=== PATIENT | male | born 1965 | race Caucasian/White ===

== ENCOUNTER 2020-04-07 04:49 | Day surgery (SDC) | payer BC ==
[2020-04-05 10:29] VITALS: BMI 25.0
--- NOTE | 2020-04-07 08:04 | HP ---
[facility]ellite [facility] - Chief Complaint Chief Complaint: left elbow pain, numbness - Past Medical History Allergies/Adverse Reactions: Allergies Allergy/AdvReac Type Severity Reaction Status Date / Time No Known Drug Allergies Allergy Verified 04/05/20 10:21 - Current Medications Current Medications: Home Medications Medication Instructions Recorded Ibuprofen 600 mg PO BID 04/05/20 Hydrocodone/Acetaminophen 1 each PO Q6H #30 tablet MDD 4 04/07/20 [Hydrocodone-Acetamin 5-325 mg] Satellite Physical Exam - Physical Examination Vital Signs: Vital Signs Period Temp Pulse Resp BP Sys/Joshi Pulse Ox Last 24 Hr 97.3 F 76 20 129/83 97 General Appearance: Well Nourished, Well Developed, Alert & Oriented x3 ENT: Clear Lung: Normal air movement Extremities: Other (left elbow- + tinels, + ttp, decr sensation in ulna nerve distribution, emg + cubital tunnel syndrome, MRI medial epicondylitis) Neurological: Intact, Alert, Oriented Satellite Impression/Plan - Impression/Plan Impression: left elbow cubital tunnel syndrome, medial epicondylitis Operative Procedure: left elbow ulna nerve transposition, medial epicondylectomy Date to be Performed: 04/07/20
[2020-04-07] MEDS ORDERED: ROPIVACAINE HCL 0.5% 30ML VIAL ONE (08:35)
[2020-04-07] MEDS ORDERED: DEXAMETHASONE SOD PHOSPHATE/PF 10 MG/ML SDV ONE (08:35)
[2020-04-07] MEDS ORDERED: MIDAZOLAM HCL 2 MG/2 ML SINGLE DOSE VIAL ONE ×2 (08:39)
[2020-04-07] MEDS ORDERED: PROPOFOL 20 ML ONE ×2 (09:55)
[2020-04-07] MEDS ORDERED: ceFAZolin SODIUM 1 GM VIAL IVPB ONE (10:01)
[2020-04-07] MEDS ORDERED: ceFAZolin SODIUM 1 GM VIAL ONE (10:45)
[2020-04-07] MEDS ORDERED: DEXAMETHASONE SOD PHOSPHATE 4 MG/1 ML VIAL ONE (10:45)
[2020-04-07] MEDS ORDERED: LIDOCAINE HCL/PF 2% SDV 5ML VIAL ONE (10:45)
[2020-04-07] MEDS ORDERED: KETOROLAC TROMETHAMINE 30 MG/1 ML VIAL ONE (10:45)
--- NOTE | 2020-04-07 11:33 | OP ---
Operative Note - Note: Operative Date: 04/07/20 ([facility]) Pre-Operative Diagnosis: left elbow cubital tunnel syndrome, medial epicondylitis Operation: left elbow ulna nerve transposition, medial epicondylectomy Post-Operative Diagnosis: Same as Pre-op Surgeon: Jaspreet Crews Branch Operations Coordinator: Denilson Peña Anesthesiologist/DRAGLINE OPERATOR: Erick Young Anesthesia: General, Local Estimated Blood Loss (mls): 0 (tourniquet)
[2020-04-07] MEDS ORDERED: oxyCODONE HCL 5 MG TABLET PO PRN (11:39)
[2020-04-07] MEDS ORDERED: ONDANSETRON 4 MG/2 ML VIAL IVPUSH PRN (11:39)
[2020-04-07] MEDS ORDERED: PROMETHAZINE HCL 25 MG/1 ML VIAL IVPB PRN (11:39)
[2020-04-07] MEDS ORDERED: LACTATED RINGERS SOLUTION 1,000 ML IV SCH (11:45)
[2020-04-07] MEDS ORDERED: oxyCODONE HCL 5 MG TABLET ONE (12:56)
--- NOTE | 2020-04-07 13:33 | OP ---
DATE OF OPERATION: 04/07/2020 PREOPERATIVE DIAGNOSES: Left elbow cubital tunnel syndrome and medial epicondylitis. POSTOPERATIVE DIAGNOSES: Left elbow cubital tunnel syndrome and medial epicondylitis. PROCEDURE: Left elbow subcutaneous ulnar nerve transposition, medial epicondylectomy and repair of flexor pronator tendon. SURGEON: Jules Mckeon MD ANIMATION DIRECTOR: JEFFREY Jung ANESTHESIOLOGIST: Erick Young MD ANESTHESIA: LMA anesthesia. SPECIMEN: None. DRAINS: None. COMPLICATIONS: None. FLUID REPLACEMENT: Plasma-Lyte, 1000 mL. BLOOD LOSS: 5 mL. INDICATION: This patient is a 54-year-old male with a preoperative diagnosis of left elbow chronic pain, medial epicondylitis and cubital tunnel syndrome. After understanding the potential risks, complications, alternatives and benefits of surgery versus nonsurgical treatment, the patient elected to undergo this procedure. DESCRIPTION OF PROCEDURE: Patient was brought to the operating room. Peripheral IV placed and IV sedation given. IV Ancef 2 g were given. LMA anesthesia was induced. He was placed into the supine position. Tourniquet was applied to the left arm. Left upper extremity was prepped and draped in a sterile fashion, elevated and exsanguinated with an Esmarch bandage and tourniquet inflated to 250 mmHg. A curvilinear incision was marked out with a marking pen over the medial epicondyle. An incision was made with a No. 15 scalpel blade. Subcutaneous hemostasis was achieved with a bipolar cautery. Great care was taken to preserve all crossing neurovascular structures. Metzenbaum scissors were utilized to dissect through the adipose layer down to the fascia over the ulnar nerve and the medial epicondyle. A tissue plane was dissected and mobilized between the medial epicondyle and superficial fascia of the flexor pronator mass at the subcutaneous fat. I was able to use my finger to aid in blunt dissection until there was plenty of room for the ulnar nerve transposition. Next Weitlaner retractors were placed into the wound. The ulnar nerve was identified proximal to the cubital tunnel so it was dissected proximally first. I used a blunt-tipped Metzenbaum scissors and was able to dissect it proximally and pass a 1/2-inch Orient drain with irrigation for lubrication around it for retraction and identification. I then used a combination of my finger, a [place] elevator and the Metzenbaum scissors to free up the ulnar nerve proximal around the medial head of the biceps. There were definitely points of compression and tight tissue bands which were released. A small portion of the medial intermuscular septum was also released to not put pressure on the nerve after the transposition. Once it was freed proximally I then moved on to the cubital tunnel. It was extremely tight with a lot of adhesive-type scar tissue. It was free up from the scar tissue and the roof of the cubital tunnel was released. I then needed to release small vessels and connective tissue bands. Next we moved more distally in a sequential fashion, releasing the ulnar nerve past the cubital tunnel, past the medial epicondyle and in the 2 heads of the FCU tendon. This distal location was actually extremely tight. I was able to release it with a combination of my index finger to expand the tunnel and a Metzenbaum scissors. There was also a tight hypertrophic fascia of the FCU which was released. I was then able to transpose it without any points of compression or tension on the nerve. It was irrigated. I again transposed the nerve, put the elbow through a full range of motion. There were no points of compression. Therefore, I put the ulnar nerve anterior to the axis of rotation at the medial epicondyle and it would sit there nicely. Next we did the medial epicondylectomy tendon repair portion of the surgery. I made 3 longitudinal slits through the medial epicondyle periosteum down to the bone and flexor pronator mass. There were no obvious tears or points of chronic inflammatory tissue. The curet was used to mildly decorticate the bone and prepare the bed for drilling. I then used a 0.062 K-wire and made multiple drill holes in each of the 3 slits in the medial epicondyle. I then repaired the slits that I had made with a No. 15 scalpel blade in the flexor pronator mass with a 2-0 Vicryl running baseball stitch. It all came together quite nicely. The ulnar nerve was then transposed, the adipose layer brought down, then using 2-0 Vicryl I sewed the soft tissue on the medial aspect of the medial epicondyle to the adipose layer to hold the ulnar nerve in this position. Once it was done, I put the elbow through a full range of motion and I felt the ulnar nerve. I did not feel any points of compression or tethering of the nerve. It moved quite well. The area was copiously irrigated and washed out. I then closed the fat layer with 2-0 Vicryl, the deep dermal layer with 4-0 undyed Vicryl and final skin reapproximation was done with a running subcuticular 4-0 Biosyn stitch. The wound was then washed and dried and covered with Steri-Strips, 4 x 4's, Webril and a posterior 5-inch Orthoglass splint was applied with the elbow at [address] above the elbow down to past the wrist. It was wrapped with Leona and 2 ALEXEI bandages. The tourniquet was taken down after a total tourniquet time of 70 minutes. There were no complications during the case. The patient tolerated the procedure quite well and was brought to the ambulatory recovery room in stable condition. JULES MCKEON M.D. [id number]
[2020-04-07 14:10] VITALS: BP 124/76; PULSE 82; TEMP 97.9
== END 2020-04-07 14:00 | disposition home or self-care (01) ==
LOC: JASU-SURG 04:49
PROVIDERS: ATTEND Orthopaedic Surgery
PROC: 0L840ZZ Division of Left Upper Arm Tendon, Open Approach (ICD-10-PCS; 2020-04-07)
PROC: 0JBF0ZZ Excision of Left Upper Arm Subcutaneous Tissue and Fascia, Open Approach (ICD-10-PCS; 2020-04-07)
PROC: 01S40ZZ Reposition Ulnar Nerve, Open Approach (ICD-10-PCS; principal; 2020-04-07 09:00)
PROC: 0PBG0ZZ Excision of Left Humeral Shaft, Open Approach (ICD-10-PCS; 2020-04-07 09:00)
DX: G56.22 Lesion of ulnar nerve, left upper limb (principal); M77.02 Medial epicondylitis, left elbow
CPT/HCPCS: 94760